=== PATIENT | female | born 1995 | race Caucasian/White ===

== ENCOUNTER 2019-03-17 17:14 | Emergency (ER) | payer OTHER, SELFPAY ==
[2019-03-17 17:32] VITALS: BP 111/73; PULSE 65; RESP 18; TEMP 36.9; O2SAT 98
--- NOTE | 2019-03-17 17:54 | ED.ABDPAIN ---
HPI - Abdominal Pain <BERTHA Rodriguez - Last Filed: 03/17/19 20:55> General Chief Complaint: Abdominal Pain Stated Complaint: pain left side stomach Time Seen by Provider: 03/17/19 17:27 Source: patient Mode of arrival: ambulatory Limitations: no limitations History of Present Illness HPI narrative: 23-year-old healthy female presents emergency department today complaining left-sided abdominal pain 2 hours ago. She states the pain is intense sharp stabbing 10/10 that is worse with movement and palpation. She reports associated nausea and vomiting in her ?mouth ?. Patient denies any trauma, chest pain, shortness of breath, recent illness, diarrhea, constipation, fevers, chills, vaginal discharge, vaginal bleeding, dysuria, flank pain, swelling in her legs, syncope, or dizziness. Patient denies any history of mono or or history of abdominal surgeries. Related Data Previous Rx's Medication Instructions Recorded ketorolac 10 mg PO TID #7 tab 03/17/19 Allergies Allergy/AdvReac Type Severity Reaction Status Date / Time No Known Drug Allergies Allergy Verified 03/17/19 17:24 Review of Systems <BERTHA Rodriguez - Last Filed: 03/17/19 20:55> Review of Systems Narrative: REVIEW OF SYSTEMS: GENERAL: Denies fever, chills, malaise, or wt. loss. HENT: No head trauma, sore throat, or dysphagia. EYES: No loss of vision, double vision, eye pain, or irritation. CARDIOVASCULAR: No chest pain, palpitations, or orthopnea. RESPIRATORY: No shortness of breath or cough. GASTROINTESTINAL: Complains of left upper quadrant abdominal pain, see HPI GENITOURINARY: No flank pain, urinary incontinence, hesitancy, frequency, or dysuria. No vaginal discharge or dyspareunia. Denies concerns for STIs. MUSCULOSKELETAL: No pain, weakness, or trauma. INTEGUMENTARY: No rash, lesions, or pruritus. NEURO: No numbness, tingling, memory loss, confusion, or headaches. PSYCH: No behavior or mood changes. PFSH <BERTHA Rodriguez - Last Filed: 03/17/19 20:55> Medical History No significant medical problems (Acute) Social History Smoking Status: Never smoker Social History Smoking Status: Never smoker Exam <BERTHA Rodriguez - Last Filed: 03/17/19 20:55> Initial Vital Signs Initial Vital Signs: Vital Signs Temperature 98.5 F 03/17/19 17:32 Pulse Rate 65 03/17/19 17:32 Respiratory Rate 18 03/17/19 17:32 Blood Pressure 111/73 03/17/19 17:32 Pulse Oximetry 98 03/17/19 17:32 PHYSICAL EXAMINATION: GENERAL: Well groomed, alert, and cooperative. Patient appears in pain during initial exam. Answers questions promptly and appropriately. Vital signs noted. HENT: Normocephalic, atraumatic. Hearing intact. Oral mucosa is pink and moist. EYES: Conjunctiva pink, sclera white, no periorbital swelling. CARDIOVASCULAR: S1 and S2 sounds normal. Regular rate and rhythm, no murmurs, clicks, or bruits. No pedal edema. RESPIRATORY: Normal respiratory rate, trachea midline, airway patent. No stridor, nasal flaring or accessory muscle use. Lungs are clear in all hall without wheeze, rhonchi, or crackles. GASTROINTESTINAL: Bowel sounds normoactive. Abdomen is soft, left upper quadrant tenderness with palpation, no rebound tenderness.. No organomegaly, no palpable masses. GENITALURINARY: No flank tenderness. MUSCULOSKELETAL: Normal gait and coordination. Equal tone and mass bilaterally. EXTREMITIES: CMS intact, no pedal edema. SKIN: Warm, dry, soft, appropriate color for ethnicity. No lesions, rashes, or wounds. NEURO: Alert and Oriented X 3. Good coordination. No ataxia, or sensory deficits, or cognitive issues. PSYCH: Appropriate affect and mood. <Robin Denny DO - Last Filed: 03/17/19 23:58> Initial Vital Signs Initial Vital Signs: Vital Signs Temperature 98.5 F 03/17/19 17:32 Pulse Rate 65 03/17/19 17:32 Respiratory Rate 18 03/17/19 17:32 Blood Pressure 111/73 03/17/19 17:32 Pulse Oximetry 98 03/17/19 17:32 Course <BERTHA Rodriguez - Last Filed: 03/17/19 20:55> Course Course Narrative: Patient reported she felt significantly better after administration of Toradol and Zofran. We discussed her negative test results and the importance of follow-up care. Orders Ordered: ED Orders 03/17/19 18:30 Complete Blood Count AUTO DIFF Stat Comprehensive Metabolic Panel Stat HCG Quantitative Stat Lipase Stat Monotest Stat 03/17/19 18:33 CT abdomen pelvis w con Stat Discontinued Medications Sodium Chloride (Normal Saline 0.9%) 1,000 mls @ 1,000 mls/hr IV BOLUS ONE Stop: 03/17/19 18:52 Last Infusion: 03/17/19 20:15 Dose: 1,000 mls/hr Documented by: Infusion: 03/17/19 19:30 Dose: 1,000 mls/hr Documented by: Infusion: 03/17/19 18:59 Dose: 0 mls/hr Documented by: Admin: 03/17/19 18:39 Dose: 1,000 mls/hr Documented by: MEISENGen Ketorolac Tromethamine (Toradol) 30 mg IV NOW ONE Stop: 03/17/19 18:34 Last Admin: 03/17/19 18:39 Dose: 30 mg Documented by: MEISENB Ondansetron HCl (Zofran) 4 mg IV NOW ONE Stop: 03/17/19 17:54 Last Admin: 03/17/19 18:39 Dose: 4 mg Documented by: WILBERSENGen Consultations Consultation #1: Patient staffed with Dr. Denny. Vital Signs Vital signs: Vital Signs - 8 hr 03/17/19 17:32 03/17/19 18:00 03/17/19 18:45 Temperature 98.5 F Pulse Rate 65 70 72 Respiratory Rate 18 18 18 Blood Pressure [Right Arm] 111/73 116/81 116/65 Pulse Oximetry 98 99 98 03/17/19 20:23 Temperature Pulse Rate 67 Respiratory Rate 16 Blood Pressure [Right Arm] 103/75 Pulse Oximetry 100 <Robin Denny DO - Last Filed: 03/17/19 23:58> Orders Ordered: ED Orders 03/17/19 18:30 Complete Blood Count AUTO DIFF Stat Comprehensive Metabolic Panel Stat HCG Quantitative Stat Lipase Stat Monotest Stat 03/17/19 18:33 CT abdomen pelvis w con Stat Discontinued Medications Sodium Chloride (Normal Saline 0.9%) 1,000 mls @ 1,000 mls/hr IV BOLUS ONE Stop: 03/17/19 18:52 Last Infusion: 03/17/19 20:15 Dose: 1,000 mls/hr Documented by: Infusion: 03/17/19 19:30 Dose: 1,000 mls/hr Documented by: Infusion: 03/17/19 18:59 Dose: 0 mls/hr Documented by: Admin: 03/17/19 18:39 Dose: 1,000 mls/hr Documented by: WILBERSENGen Ketorolac Tromethamine (Toradol) 30 mg IV NOW ONE Stop: 03/17/19 18:34 Last Admin: 03/17/19 18:39 Dose: 30 mg Documented by: ARLINE Ondansetron HCl (Zofran) 4 mg IV NOW ONE Stop: 03/17/19 17:54 Last Admin: 03/17/19 18:39 Dose: 4 mg Documented by: ARLINE Vital Signs Vital signs: Vital Signs - 8 hr 03/17/19 17:32 03/17/19 18:00 03/17/19 18:45 Temperature 98.5 F Pulse Rate 65 70 72 Respiratory Rate 18 18 18 Blood Pressure [Right Arm] 111/73 116/81 116/65 Pulse Oximetry 98 99 98 03/17/19 20:23 Temperature Pulse Rate 67 Respiratory Rate 16 Blood Pressure [Right Arm] 103/75 Pulse Oximetry 100 MDM - Abdominal Pain <BERTHA Rodriguez - Last Filed: 03/17/19 20:55> Medical Records Attestation: I reviewed the patient's medical records. Lab Data Attestation: I reviewed the patient's lab results. Result diagrams: 03/17/19 18:30 03/17/19 18:30 Labs: Lab Results 03/17/19 03/17/19 03/17/19 Range/Units 18:30 18:30 18:30 WBC 7.6 (4.5-11.0) X10^3/uL RBC 4.39 (4.0-5.2) X10^6/uL Hgb 13.2 (12.0-16.0) g/dL Hct 38.5 (36-46) % MCV 87.8 (80-100) fL MCH 30.1 (26-34) PG MCHC 34.3 (30-36) % RDW 13.5 (11.6-14.8) % Plt Count 253 (150-400) X10^3/uL Neut % (Auto) 58.0 (50-75) % Lymph % (Auto) 33.8 (25-40) % [place] % (Auto) 6.7 (3-14) % Eos % (Auto) 1.2 L (2-4) % Baso % (Auto) 0.3 (0-2) % Neut # (Auto) 4400 (8668-0122) /uL Lymph # (Auto) 2600 (8776-3476) /uL [place] # (Auto) 500 (0-900) /uL Eos # (Auto) 100 (0-450) /uL Baso # (Auto) 0 (0-100) /uL Sodium 142 (137-145) mmol/L Potassium 4.3 (3.4-5.1) mmol/L Chloride 106 (98-107) mmol/L Carbon Dioxide 26 (22-32) mmol/L BUN 11 (7-17) mg/dL Creatinine 0.60 (0.52-1.04) mg/dL Estimated GFR > 60.0 (>60) mL/min BUN/Creatinine Ratio 18.3 (6-22) Glucose 90 (70-100) mg/dL Calcium 10.0 (8.4-10.2) mg/dL Total Bilirubin 0.8 (0.2-1.3) mg/dL AST 39 H (14-36) IU/L ALT 50 (9-52) IU/L Alkaline Phosphatase 92 (38-126) U/L Total Protein 8.3 H (6.3-8.2) g/dL Albumin 4.8 (3.5-5.0) g/dL Globulin 3.5 (1.7-4.1) g/dL Albumin/Globulin Ratio 1.4 (1.0-2.8) Lipase 76 (23-300) U/L HCG, Quant < 2.39 mIU/mL Monoscreen Negative (Negative) Point of care testing: Point of Care Testing Test Results Negative Urine Dip Bedside Urine Glucose Negative Bedside Urine Bilirubin - Negative Bedside Urine Ketone - Negative Urine Specific [place] 1.010 Bedside Urine Occult Blood - Negative Bedside Urine pH 7 Bedside Urine Protein - Negative Bedside Urine Urobilinogen - Negative Bedside Urine Nitrite - Negative Bedside Urine Leukocytes - Negative Esterase Imaging Data CT scan - abdomen: Radiologist's impression: [address] [address] [address] Scan Report Signed Patient: Dana Díaz LMR#: [id number] : 1995Acct:[id number] Age/Sex: 23 / FDate of Service: 03/17/19 Loc: ED Accession Number: [id number] Procedure: CT abdomen pelvis w con Ordering Provider: Svitlana Olmos PROCEDURE: CT ABDOMEN PELVIS W CON INDICATIONS: Severe LUQ pain TECHNIQUE: After the administration of intravenous contrast, 5 mm thick sections acquired from the diaphragm to the symphysis. 5 mm coronal and sagittal reformats were acquired. For radiation dose reduction, the following was used: automated exposure control, adjustment of mA and/or kV according to patient size. COMPARISON: None. FINDINGS: Image quality: Excellent. ABDOMEN: Lung bases: Lung bases are clear. Heart size is normal. Solid organs: Liver is normal in size and enhancement. Gallbladder is contracted, but within normal limits. Biliary system is non dilated. Pancreas enhances normally. Spleen is normal in size and enhancement. No adrenal nodules. Kidneys demonstrate normal size and enhancement, without hydronephrosis. Peritoneum and bowel: Bowel loops demonstrate normal wall thickness and caliber. A few scattered diverticuli are noted in the sigmoid colon without evidence of diverticulitis. No free fluid or air. The appendix is visualized and is normal. Nodes and vessels: No retroperitoneal or mesenteric adenopathy by size criteria. Aorta and inferior vena cava are normal in size. Miscellaneous: No ventral hernias. PELVIS: Genitourinary: Bladder wall thickness is normal. Miscellaneous: No inguinal hernias or adenopathy. Bones: No suspicious bony lesions. No vertebral body compression fractures. IMPRESSION: 1. No acute disease process. 2. Colonic diverticulosis without evidence diverticulitis. 3. Appendix is normal 4. No free fluid or free air. 5. No dilated loops of bowel. Dictated by: Elyse Parish MD, PhD on 03/17/2019 at 19:28 Approved by: Elyse Parish MD, PhD on 03/17/2019 at 19:31 [facility] Narrative Medical decision making narrative: Differential includes splenic inflammation or etiology (less likely due to normal visualization of spleen, no history of trauma), renal calculi (less likely due to right upper quadrant pain without flank pain, CT visualized and normal kidneys without hydronephrosis), diverticulitis (less likely due to lack of findings on CT, ) urine white blood cell count, less likely ectopic as patient test negative for . Less likely ovarian cyst or PID as patient denies vaginal discharge, she denies lower abdominal pain or pelvic pain, pain is mostly in the right upper quadrant, she denies risk for STDs. Suspect patient is a good candidate to be discharged as she reports significant resolution of pain after administration of Toradol. However, strict return precautions were given if her pain changes or if she develops any new symptoms given that we cannot pinpoint the etiology of her symptoms and her pain was severe upon admission. <Robin Denny DO - Last Filed: 03/17/19 23:58> Lab Data Labs: Lab Results 03/17/19 03/17/19 03/17/19 Range/Units 18:30 18:30 18:30 WBC 7.6 (4.5-11.0) X10^3/uL RBC 4.39 (4.0-5.2) X10^6/uL Hgb 13.2 (12.0-16.0) g/dL Hct 38.5 (36-46) % MCV 87.8 (80-100) fL MCH 30.1 (26-34) PG MCHC 34.3 (30-36) % RDW 13.5 (11.6-14.8) % Plt Count 253 (150-400) X10^3/uL Neut % (Auto) 58.0 (50-75) % Lymph % (Auto) 33.8 (25-40) % [place] % (Auto) 6.7 (3-14) % Eos % (Auto) 1.2 L (2-4) % Baso % (Auto) 0.3 (0-2) % Neut # (Auto) 4400 (4381-5623) /uL Lymph # (Auto) 2600 (0404-8673) /uL [place] # (Auto) 500 (0-900) /uL Eos # (Auto) 100 (0-450) /uL Baso # (Auto) 0 (0-100) /uL Sodium 142 (137-145) mmol/L Potassium 4.3 (3.4-5.1) mmol/L Chloride 106 (98-107) mmol/L Carbon Dioxide 26 (22-32) mmol/L BUN 11 (7-17) mg/dL Creatinine 0.60 (0.52-1.04) mg/dL Estimated GFR > 60.0 (>60) mL/min BUN/Creatinine Ratio 18.3 (6-22) Glucose 90 (70-100) mg/dL Calcium 10.0 (8.4-10.2) mg/dL Total Bilirubin 0.8 (0.2-1.3) mg/dL AST 39 H (14-36) IU/L ALT 50 (9-52) IU/L Alkaline Phosphatase 92 (38-126) U/L Total Protein 8.3 H (6.3-8.2) g/dL Albumin 4.8 (3.5-5.0) g/dL Globulin 3.5 (1.7-4.1) g/dL Albumin/Globulin Ratio 1.4 (1.0-2.8) Lipase 76 (23-300) U/L HCG, Quant < 2.39 mIU/mL Monoscreen Negative (Negative) Point of care testing: Point of Care Testing Test Results Negative Urine Dip Bedside Urine Glucose Negative Bedside Urine Bilirubin - Negative Bedside Urine Ketone - Negative Urine Specific [place] 1.010 Bedside Urine Occult Blood - Negative Bedside Urine pH 7 Bedside Urine Protein - Negative Bedside Urine Urobilinogen - Negative Bedside Urine Nitrite - Negative Bedside Urine Leukocytes - Negative Esterase Discharge Plan Departure Patient Disposition: Home Clinical Impression: Abdominal pain Qualifiers: Abdominal location: left upper quadrant Qualified Code(s): R10.12 - Left upper quadrant pain Discharge Date/Time: 03/17/19 20:20 Instructions: DI for Abdominal Pain-Adult Activity Restrictions/Additional Instructions: Thank you for entrusting me with your care today. As discussed, your CT scan, blood work, and urinalysis were negative for any concerning findings. I prescribed you a medication to help with pain, do not take ibuprofen, Aleve, or Advil with this medication. If you need something in addition to Ketoralac you may take Tylenol. Follow up with your primary care provider in the next week for re-evaluation and further testing if needed. Return to the emergency department if you experience high fevers, chest pain, shortness of breath, severe abdominal pain, uncontrollable vomiting, or other concerns. Prescriptions: New ketorolac 10 mg tablet 10 mg PO TID Qty: 7 RF: 0 <Robin Denny DO - Last Filed: 03/17/19 23:58> Sign Out Provider Sign Out Attestation: I was available for consultation during this patient's emergency department encounter
[2019-03-17 18:00] VITALS: BP 116/81; PULSE 70; RESP 18; O2SAT 99
--- NOTE | 2019-03-17 18:33 | DI.CT.S_ITS ---
PROCEDURE: CT ABDOMEN PELVIS W CON INDICATIONS: Severe LUQ pain TECHNIQUE: After the administration of intravenous contrast, 5 mm thick sections acquired from the diaphragm to the symphysis. 5 mm coronal and sagittal reformats were acquired. For radiation dose reduction, the following was used: automated exposure control, adjustment of mA and/or kV according to patient size. COMPARISON: None. FINDINGS: Image quality: Excellent. ABDOMEN: Lung bases: Lung bases are clear. Heart size is normal. Solid organs: Liver is normal in size and enhancement. Gallbladder is contracted, but within normal limits. Biliary system is non dilated. Pancreas enhances normally. Spleen is normal in size and enhancement. No adrenal nodules. Kidneys demonstrate normal size and enhancement, without hydronephrosis. Peritoneum and bowel: Bowel loops demonstrate normal wall thickness and caliber. A few scattered diverticuli are noted in the sigmoid colon without evidence of diverticulitis. No free fluid or air. The appendix is visualized and is normal. Nodes and vessels: No retroperitoneal or mesenteric adenopathy by size criteria. Aorta and inferior vena cava are normal in size. Miscellaneous: No ventral hernias. PELVIS: Genitourinary: Bladder wall thickness is normal. Miscellaneous: No inguinal hernias or adenopathy. Bones: No suspicious bony lesions. No vertebral body compression fractures. IMPRESSION: 1. No acute disease process. 2. Colonic diverticulosis without evidence diverticulitis. 3. Appendix is normal 4. No free fluid or free air. 5. No dilated loops of bowel. Dictated by: Elyse Parish MD, PhD on 03/17/2019 at 19:28 Approved by: Elyse Parish MD, PhD on 03/17/2019 at 19:31
[2019-03-17 18:38] LABS: Add Manual Diff / Slide Review NO; Basophils Absolute Auto 0 /uL (0-100); Basophils Percent Auto 0.3 % (0-2); Eosinophils Absolute Auto 100 /uL (0-450); Eosinophils Percent Auto 1.2 % (2-4); Hematocrit 38.5 % (36-46); Hemoglobin 13.2 g/dL (12.0-16.0); Lymphocytes Absolute Auto 2600 /uL (1100-4500); Lymphocytes Percent Auto 33.8 % (25-40); Mean Corpuscular HGB Conc 34.3 % (30-36); Mean Corpuscular Hemoglobin 30.1 PG (26-34); Mean Corpuscular Volume 87.8 fL (80-100); Monocytes Absolute Auto 500 /uL (0-900); Monocytes Percent Auto 6.7 % (3-14); Neutrophils Absolute Auto 4400 /uL (1500-7000); Platelet Count 253 X10^3/uL (150-400); Red Blood Cell Count 4.39 X10^6/uL (4.0-5.2); Red Cell Distribution Width 13.5 % (11.6-14.8); White Blood Cell Count 7.6 X10^3/uL (4.5-11.0)
[2019-03-17] MEDS: ONDANSETRON 4 MG/2 ML INJ IV (18:39)
[2019-03-17] MEDS: KETOROLAC 60 MG/2 ML VIAL 30 MG IV (18:39)
[2019-03-17] MEDS: SODIUM CHLORIDE 0.9% 1,000 ML 1000 ML IV (18:39)
[2019-03-17 18:45] VITALS: BP 116/65; PULSE 72; RESP 18; O2SAT 98
[2019-03-17 18:50] LABS: Alanine Aminotransferase 50 IU/L (9-52); Albumin 4.8 g/dL (3.5-5.0); Albumin Globulin Ratio 1.4 (1.0-2.8); Alkaline Phosphatase 92 U/L (38-126); Aspartate Aminotransferase 39 IU/L (14-36); BUN Creatinine Ratio 18.3 (6-22); Bilirubin Total 0.8 mg/dL (0.2-1.3); Blood Urea Nitrogen 11 mg/dL (7-17); Carbon Dioxide 26 mmol/L (22-32); Chloride 106 mmol/L (98-107); Estimated Glomerular Filt Rate > 60.0 mL/min (>60); Globulin 3.5 g/dL (1.7-4.1); Glucose 90 mg/dL (70-100); HEMOLYSIS < 15 (0-50); Lipase 76 U/L (23-300); Potassium 4.3 mmol/L (3.4-5.1); Sodium 142 mmol/L (137-145); Total Protein 8.3 g/dL (6.3-8.2)
[2019-03-17 19:07] LABS: HCG Quantitative /Beta subunit < 2.39 mIU/mL
[2019-03-17 19:11] LABS: Monotest Negative (Negative)
[2019-03-17 20:23] VITALS: BP 103/75; PULSE 67; RESP 16; O2SAT 100
== END 2019-03-17 20:20 | disposition home or self-care (01) ==
PROVIDERS: Emergency Provider Nurse Practitioner
DX: R10.12 Left upper quadrant pain (principal)
CPT/HCPCS: 36591; 74177; 80053; 81003; 81025; 83690; 84702; 85025; 86318; 96361; 96374; 96375; 99284; 99285; J1885; J2405; Q9967

== ENCOUNTER 2020-05-21 10:07 | Emergency (ER) | payer OTHER, SELFPAY ==
[2020-05-21 10:17] VITALS: BP 128/73; PULSE 94; RESP 16; O2SAT 100; BMI 44.6
--- NOTE | 2020-05-21 10:53 | ED_ITS ---
HPI - Female Genitourinary General Chief complaint: Urogenital-Female Stated complaint: back pain,fever,burning pee Time Seen by Provider: 05/21/20 10:52 Source: patient Mode of arrival: Ambulatory Limitations: no limitations History of Present Illness HPI Narrative: This is a 24-year-old female who comes to the emergency department with complaint of fever up to. Patient states that she has had dysuria, frequency and a sensation of incomplete emptying for the past day or so. She has had some chills like feeling. She has been some nausea but no vomiting. She has had bilateral back pain, she denies any abdominal pain or suprapubic pain. No constipation she has had some looser stools. She has noted a new vaginal discharge she describes it as clear. She is sexually active but has not had any contacts that have been concerning. She denies any other medical issues. She has had tubal ligation. She denies any allergies to medications. She does vape tobacco. Related Data Previous Rx's Medication Instructions Recorded ketorolac 10 mg PO TID #7 tab 03/17/19 doxycycline hyclate 100 mg PO BID #28 cap 05/21/20 metronidazole [Flagyl] 500 mg PO BID #28 tab 05/21/20 ondansetron HCl [Zofran] 4 mg PO Q6H PRN #5 tab 05/21/20 Allergies Allergy/AdvReac Type Severity Reaction Status Date / Time No Known Drug Allergies Allergy Verified 03/17/19 17:24 Review of Systems Review of Systems ROS Unobtainable: All systems reviewed & are unremarkable except as noted in HPI and below Patient History Medical History (Updated 05/21/20 @ 11:40 by Zuleyma Acharya DO) No significant medical problems Substance Use Type: does not use Exam Narrative Exam Narrative: GENERAL: Alert and oriented x three, obese female in [id number] distress. HEENT: Head normocephalic, atraumatic, EOMI, pupils reactive, face symmetric, moist mucous membranes NECK: Supple, full range of motion CARDIOVASCULAR: Regular rate and rhythm without murmurs, rubs or gallops. RESPIRATORY: Breath sounds equal bilaterally, no wheezes rales or rhonchi. ABDOMEN: Soft, nontender. Normoactive bowel sounds all 4 quadrants. No guarding or rebound, rigidity, no mass Female: externa vaginal examl normal, no vaginal bleeding, positive for thick yellow whitish discharge, positive for cervical motion tenderness, otherwise normal speculum exam, no adnexal tenderness/mass. Bimanual exam is normal, no enlarged or tender uterus. Non-gravid. : Bilateral CVA tenderness EXTREMITIES: Normal range of motion, no clubbing or edema. Neurovascularly intact NEUROLOGICAL: Cranial nerves II through XII grossly intact. Moving all extremities SKIN: Warm, dry, no petechiae, no rashes or lesions. Initial Vital Signs Initial Vital Signs: Vital Signs Pulse Rate 94 H 05/21/20 10:17 Respiratory Rate 16 05/21/20 10:17 Blood Pressure 128/73 05/21/20 10:17 Pulse Oximetry 100 05/21/20 10:17 Course Orders Ordered: ED Orders 05/21/20 10:35 Chlamydia Gonorrhea PCR -URINE Stat Urine Culture Stat 05/21/20 11:39 Genital Culture Stat Wet Prep Tric BV Maddie Stat Discontinued Medications Ceftriaxone Sodium (Ceftriaxone 1,000 Mg Vial) 250 mg IM NOW ONE Stop: 05/21/20 11:34 Last Admin: 05/21/20 12:10 Dose: 250 mg Documented by: KIRSTEN Doxycycline Hyclate (Doxycycline Hyclate 100 Mg Tablet) 100 mg PO NOW ONE Stop: 05/21/20 11:35 Last Admin: 05/21/20 11:50 Dose: 100 mg Documented by: KIRSTEN Ketorolac Tromethamine (Ketorolac 60 Mg/2 Ml Vial) 30 mg IM NOW ONE Stop: 05/21/20 11:34 Last Admin: 05/21/20 11:49 Dose: 30 mg Documented by: KIRSTEN Vital Signs Vital signs: Vital Signs - 8 hr 05/21/20 10:17 05/21/20 11:56 05/21/20 12:33 Temperature 98.8 F Pulse Rate 94 H 75 Respiratory Rate 16 16 Blood Pressure 128/73 117/69 Pulse Oximetry 100 99 MDM - Female Genitourinary Lab Data Attestation: I reviewed the patient's lab results. Labs: Urine Dip Bedside Urine Glucose Negative Bedside Urine Bilirubin - Negative Bedside Urine Ketone - Negative Urine Specific [place] 1.015 Bedside Urine Occult Blood - Negative Bedside Urine pH 7.0 Bedside Urine Protein - Negative Bedside Urine Urobilinogen - Negative Bedside Urine Nitrite - Negative Bedside Urine Leukocytes - Negative Esterase MDM Narrative Medical decision making narrative: Patient's urinalysis is negative. She does have new vaginal discharge. Patient is quite tender on exam. Started on antibiotics and cultures were sent. Discharge Plan Departure Patient Disposition: Home Clinical Impression: Acute pelvic inflammatory disease (PID) Instructions: DI for Pelvic Inflammatory Disease (PID) Activity Restrictions/Additional Instructions: Follow up with your physician in the next week for recheck and to follow up on your culture results. Take antibiotics until they are completely gone. You may take ibuprofen to 800 mg every 8 hours and/or Tylenol up to a 1000 mg every 8 hours as needed for pain If you are feeling nauseated you may take Zofran 1 tablet every 6 hours as needed nausea. Did not engage in any sexual activity until you have finished all antibiotics. Return to the ER for fevers, worsening abdominal or back pain, persistent vomiting, lightheadedness or passing out, black or bloody stools, difficulty with urination or other new or concerning symptoms. Prescriptions: New doxycycline hyclate 100 mg capsule 100 mg PO BID Qty: 28 RF: 0 metronidazole [Flagyl] 500 mg tablet 500 mg PO BID Qty: 28 RF: 0 ondansetron HCl [Zofran] 4 mg tablet 4 mg PO Q6H PRN (Reason: nausea and vomiting) Qty: 5 RF: 0 No Action ketorolac 10 mg tablet 10 mg PO TID Qty: 7 RF: 0
[2020-05-21] MEDS: KETOROLAC 60 MG/2 ML VIAL 30 MG IM (11:49)
[2020-05-21] MEDS: DOXYCYCLINE HYCLATE 100 MG TABLET PO (11:50)
[2020-05-21 11:56] VITALS: TEMP 37.1
[2020-05-21] MEDS: cefTRIAXone 1,000 MG VIAL 250 MG IM (12:10)
[2020-05-21 12:33] VITALS: BP 117/69; PULSE 75; RESP 16; O2SAT 99
[2020-05-21 13:51] LABS: Urine N gonorrhoeae NOT DETECTED
[2020-05-21 13:53] LABS: Urine Chlamydia NOT DETECTED
== END 2020-05-21 12:36 | disposition home or self-care (01) ==
PROVIDERS: Emergency Provider Emergency Medicine
DX: N73.9 Female pelvic inflammatory disease, unspecified (principal); R30.0 Dysuria; R10.9 Unspecified abdominal pain; R50.9 Fever, unspecified; E66.9 Obesity, unspecified
CPT/HCPCS: 81003; 87070; 87086; 87205; 87210; 87491; 87591; 96372; 99281; 99283; J0696; J1885

== ENCOUNTER 2024-08-01 09:14 | Emergency (ER) | payer OTHER, SELFPAY ==
[2024-08-01 09:17] VITALS: BP 187/95; PULSE 86; RESP 18; TEMP 37.8; O2SAT 100; BMI 46.2
[2024-08-01 09:49] VITALS: BP 134/97; PULSE 79; O2SAT 99
[2024-08-01 09:58] LABS: Add Manual Diff / Slide Review NO; Basophils Absolute Auto 100 /uL (0-100); Basophils Percent Auto 0.8 % (0-2); Eosinophils Absolute Auto 100 /uL (0-450); Eosinophils Percent Auto 1.8 % (2-4); Hemoglobin 14.1 g/dL (12.0-16.0); Lymphocytes Absolute Auto 1900 /uL (1100-4500); Lymphocytes Percent Auto 28.8 % (25-40); Mean Corpuscular HGB Conc 34.4 % (30-36); Mean Corpuscular Hemoglobin 30.6 PG (26-34); Mean Corpuscular Volume 89.1 fL (80-100); Monocytes Absolute Auto 400 /uL (0-900); Monocytes Percent Auto 6.3 % (3-14); Neutrophils Absolute Auto 4000 /uL (1500-7000); Neutrophils Percent Auto 62.3 % (50-75); Platelet Count 250 X10^3/uL (150-400); White Blood Cell Count 6.4 X10^3/uL (4.5-11.0)
[2024-08-01 10:00] VITALS: BP 132/80; PULSE 75; O2SAT 99
--- NOTE | 2024-08-01 10:08 | ED.FEMALEGU ---
HPI - Female Genitourinary General Chief complaint: Urogenital-Female Stated complaint: Lower back pain, fever, burning when urinating Time Seen by Provider: 08/01/24 09:34 Source: patient Mode of arrival: Ambulatory History of Present Illness HPI Narrative: Patient is a healthy 28-year-old female presenting today with back pain. Reports that the last couple of days she has had painful frequent urination. She took some porg-rhl-ddosakw medication but presents today with low-grade temperature of a 100?. She was previously had pyelonephritis. She started having pain on the left side now it is on both sides. Not radiating around her abdomen or down her legs. Feels nauseous. Generally uncomfortable Related Data Previous Rx's Medication Instructions Recorded ketorolac 10 mg tablet 10 mg PO TID pain #7 tabs 03/17/19 doxycycline hyclate 100 mg capsule 100 mg PO BID #28 caps 05/21/20 metronidazole 500 mg tablet 500 mg PO BID #28 tabs 05/21/20 (Flagyl) ondansetron HCl 4 mg tablet 4 mg PO Q6H PRN nausea and 05/21/20 (Zofran) vomiting #5 tabs cephalexin 500 mg capsule 500 mg PO BID 7 days #14 caps 08/01/24 Allergies Allergy/AdvReac Type Severity Reaction Status Date / Time codeine Allergy Verified 08/01/24 09:17 Patient History Medical History (Updated 08/01/24 @ 12:40 by Margarita Mendes DO) No significant medical problems tobacco type: vaping Exam Initial Vital Signs Initial Vital Signs: Vital Signs Temperature 100.0 F H 08/01/24 09:17 Pulse Rate 86 08/01/24 09:17 Respiratory Rate 18 08/01/24 09:17 Blood Pressure 187/95 H 08/01/24 09:17 Pulse Oximetry 100 08/01/24 09:17 Oxygen Delivery Method Room Air 08/01/24 09:17 GENERAL: Alert 18-year-old female appears to not feel well and in no acute distress. HEENT: Head atraumatic,EOMI, pupils reactive, face symmetric, moist mucous membranes CARDIOVASCULAR: Regular rate and rhythm without murmurs, rubs or gallops. RESPIRATORY: Breath sounds equal bilaterally, no wheezes rales or rhonchi. ABDOMEN: Soft, nontender. Normoactive bowel sounds all 4 quadrants. No guarding or rebound. : Mild bilateral CVA tenderness EXTREMITIES: Normal range of motion, no clubbing or edema. Neurovascularly intact NEUROLOGICAL: Alert and oriented x4.Normal gait and speech. SKIN: Warm, dry, no laceration, no petechiae, no rashes or lesions. Course Orders Ordered: ED Orders 08/01/24 09:50 CBC Auto Diff [Complete Blood Count AUTO DIFF] Stat CMP [Comprehensive Metabolic Panel] Stat Lactate (Lactic Acid) Stat 08/01/24 10:28 CT abdomen pelvis w con Stat 08/01/24 11:00 Blood Culture Stat Discontinued Medications Ceftriaxone Sodium 1,000 mg/ (Sodium Chloride) 100 mls @ 200 mls/hr IV NOW ONE Stop: 08/01/24 10:33 Last Infusion: 08/01/24 11:46 Dose: Infused Documented By: Admin: 08/01/24 10:51 Dose: 200 mls/hr Documented By: Ketorolac Tromethamine (Ketorolac 30 Mg/Ml Vial) 15 mg IV NOW ONE Stop: 08/01/24 10:29 Last Admin: 08/01/24 10:51 Dose: 15 mg Documented By: Morphine Sulfate (Morphine 4 Mg/Ml Inj) 4 mg IV NOW ONE Stop: 08/01/24 12:32 Last Admin: 08/01/24 12:34 Dose: Not Given Documented By: Ondansetron HCl (Ondansetron 4 Mg/2 Ml Inj) 4 mg IV NOW PRN PRN Reason: Nausea And Vomiting Ondansetron HCl (Ondansetron 4 Mg Odt) 4 mg SL NOW PRN PRN Reason: Nausea And Vomiting Ondansetron HCl (Ondansetron 4 Mg/2 Ml Inj) 4 mg IV NOW ONE Stop: 08/01/24 12:32 Last Admin: 08/01/24 12:34 Dose: Not Given Documented By: Vital Signs Vital signs: Vital Signs - 8 hr 08/01/24 12:50 Temperature 98.4 F Pulse Rate 66 Respiratory Rate 16 Blood Pressure 135/78 Pulse Oximetry 98 Oxygen Delivery Method Room Air MDM - Female Genitourinary Lab Data 08/01/24 09:50 08/01/24 09:50 Labs: Lab Results 08/01/24 08/01/24 Range/Units 09:26 09:50 WBC 6.4 (4.5-11.0) X10^3/uL RBC 4.60 (4.0-5.2) X10^6/uL Hgb 14.1 (12.0-16.0) g/dL Hct 41.0 (36-46) % MCV 89.1 (80-100) fL MCH 30.6 (26-34) PG MCHC 34.4 (30-36) % RDW 13.0 (11.6-14.8) % Plt Count 250 (150-400) X10^3/uL Neut % (Auto) 62.3 (50-75) % Lymph % (Auto) 28.8 (25-40) % Sampson % (Auto) 6.3 (3-14) % Eos % (Auto) 1.8 L (2-4) % Baso % (Auto) 0.8 (0-2) % Neut # (Auto) 4000 (8805-8655) /uL Lymph # (Auto) 1900 (7433-6285) /uL Sampson # (Auto) 400 (0-900) /uL Eos # (Auto) 100 (0-450) /uL Baso # (Auto) 100 (0-100) /uL Sodium 139 (137-145) mmol/L Potassium 4.2 (3.4-5.1) mmol/L Chloride 108 H (98-107) mmol/L Carbon Dioxide 23 (22-32) mmol/L BUN 10 (7-17) mg/dL Creatinine 0.67 (0.52-1.04) mg/dL Estimated GFR > 60 (>60) mL/min BUN/Creatinine Ratio 14.9 (6-22) Glucose 99 (70-100) mg/dL Lactate 1.1 (0.7-2.1) mmol/L Calcium 9.5 (8.4-10.2) mg/dL Total Bilirubin 0.8 (0.2-1.3) mg/dL AST 38 H (14-36) IU/L ALT 32 (<35) IU/L Alkaline Phosphatase 88 (38-126) U/L Total Protein 8.7 H (6.3-8.2) g/dL Albumin 4.9 (3.5-5.0) g/dL Globulin 3.8 (1.7-4.1) g/dL Albumin/Globulin Ratio 1.3 (1.0-2.8) Urine Color Yellow Urine Appearance Sl cloudy Urine pH 5.5 (4.5-8.0) Ur Specific [place] 1.025 (1.000-1.035) Urine Protein Negative (Negative) Urine Glucose (UA) Negative (Negative) g/dL Urine Ketones Negative (NEGATIVE) Urine Occult Blood 2+ H (Negative) Urine Nitrate Negative (Negative) Urine Bilirubin Negative (NEGATIVE) Urine Urobilinogen 1.0 (0.2) E.U./dL Ur Leukocyte Esterase 2+ H (NEGATIVE) Urine RBC 10-30/hpf H (0-5/HPF) Urine WBC 10-30/hpf H (0-5/HPF) Ur Squamous Epith Cells 1-5 /hpf (0-5/HPF) Urine Bacteria Few (2-10) H (None) Ur Culture Indicated? Specimen cultured Vol Urine Centrifuged 10ml (spun) Point of Care Testing Test Results Negative Urine Dip Bedside Urine Glucose Negative Bedside Urine Bilirubin - Negative Bedside Urine Ketone - Negative Urine Specific [place] 1.025 Bedside Urine Occult Blood +++ Bedside Urine pH 6.0 Bedside Urine Protein - Negative Bedside Urine Urobilinogen - Negative Bedside Urine Nitrite - Negative Bedside Urine Leukocytes ++ [address] scan - abdomen/pelvis: Radiologist's Impression: PROCEDURE: CT ABDOMEN PELVIS W CON INDICATIONS: back pain uti TECHNIQUE: After the administration of intravenous contrast, axial sections acquired from the lung bases to the pubic symphysis. Coronal and sagittal reformats were performed. For radiation dose reduction, the following was used: automated exposure control, adjustment of mA and/or kV according to patient size. COMPARISON: [facility], CT, CT ABDOMEN PELVIS W CON, 03/17/2019, 18:53. FINDINGS: Image quality: Diagnostic Lower chest: Unremarkable lung bases Normal heart size Liver: Unremarkable Gallbladder and biliary system: Cholecystectomy clips, nondilated Pancreas: No ductal dilation Spleen: Prominent at 12 the 13 cm Adrenals: No discrete nodules Kidneys: No solid mass or hydronephrosis. Vessels and lymph nodes: The main portal vein is patent. No abdominal aortic aneurysm or pathologic lymph nodes by size criteria. Bowel and peritoneum: No evidence of small bowel obstruction. No pathologic ascites. No drainable abscess. Appendix is nondilated Body wall: Unremarkable Pelvis: Bladder is under distended and not well assessed. Uterus is unremarkable, IUD is in place in expected position. Bones: There are degenerative changes. Pseudoarthrosis of the right L5 transverse process with the sacrum. Focal disc space height loss is seen at L5-S1. Suspect small disc bulges at the lower lumbar spine. IMPRESSION: No hydronephrosis. The bladder is under distended, limiting CT evaluation. Mild lumbar degenerative changes. Of note, there is pseudoarthrosis of the right L5 transverse process with the sacrum, which can be associated with focal pain. Other findings above. Dictated by: Sreedhar Miles M.D. on 08/01/2024 at 12:23 MDM Narrative Medical decision making narrative: MDM CC: Back pain painful frequent urination Complicating co-morbidities: Obesity Medical records reviewed: Differential considered: Nephrolithiasis pyelonephritis UTI PID, ovarian torsion Exam documented above, pertinent findings include: Mild bilateral CVA tenderness abdomen overall soft some mild suprapubic pain Lab Test results independently reviewed as above. Pertinent findings: CBC does not show any leukocytosis or anemia WBC 6.4 Electrolytes within normal limits no NILSA creatinine 0.67 Lactate 1.1 Liver enzymes stable AST is 38 bilirubin 0.8 Urinalysis positive for bacteria and leukocytes Imaging studies independently reviewed: CT does not show any evidence of nephrolithiasis or hydronephrosis Treatments: toradol Re-evaluations: Patient is still having some mild discomfort offered stronger pain medicine but she has to drive home Discussion: Patient 28-year-old female presents today with painful frequent urination ongoing for couple of days now having bilateral flank pain. CT does not show any evidence of nephrolithiasis. Blood work is overall reassuring no evidence of sepsis. I suspect pyelonephritis. Can be treated as outpatient. She was offered something more for pain but does not want any narcotics feels comfortable going home at this time Discharge Plan Departure Patient Disposition: Home Clinical Impression: Pyelonephritis Instructions: DI for Kidney Infection Activity Restrictions/Additional Instructions: *You have been diagnosed with *What to do: Increase fluids as tolerated take medication directed *Continue to take medications as directed Motrin 600 mg every 6 hours for pltf-wy-wbgkcqku pain Tylenol 1000 mg every 6 hours for dshd-ke-bptumpjs pain Keflex 500 mg twice a day for 7 days *Follow up with your primary care provider in 2-3 days or call [phone] *Return to ER if you should have increasing back pain persistent vomiting no improvement [or] any new, worsening or concerning symptoms Prescriptions: New cephalexin 500 mg capsule 500 mg PO BID 7 Days Qty: 14 0RF No Action ketorolac 10 mg tablet 10 mg PO TID Qty: 7 0RF doxycycline hyclate 100 mg capsule 100 mg PO BID Qty: 28 0RF metronidazole [Flagyl] 500 mg tablet 500 mg PO BID Qty: 28 0RF ondansetron HCl [Zofran] 4 mg tablet 4 mg PO Q6H PRN (Reason: nausea and vomiting) Qty: 5 0RF Stand Alone Forms: Patient Portal/API/Survey
[2024-08-01 10:10] LABS: Appearance Urine UA SL CLOUDY; Bilirubin Urine UA NEGATIVE (NEGATIVE); Color Urine UA YELLOW; Glucose Urine UA NEGATIVE (Negative); Ketones Urine UA NEGATIVE (NEGATIVE); Leukocyte Esterase Urine UA 2+ (NEGATIVE); Nitrite Urine UA NEGATIVE (Negative); Occult Blood Urine UA 2+ (Negative); Protein Urine UA NEGATIVE (Negative); Specific Gravity Urine UA 1.025 (1.000-1.035)
[2024-08-01 10:12] LABS: pH Urine UA 5.5 (4.5-8.0)
[2024-08-01 10:13] LABS: Alanine Aminotransferase 32 IU/L (<35); Albumin 4.9 g/dL (3.5-5.0); Albumin Globulin Ratio 1.3 (1.0-2.8); Alkaline Phosphatase 88 U/L (38-126); Aspartate Aminotransferase 38 IU/L (14-36); BUN Creatinine Ratio 14.9 (6-22); Bilirubin Total 0.8 mg/dL (0.2-1.3); Blood Urea Nitrogen 10 mg/dL (7-17); Calcium 9.5 mg/dL (8.4-10.2); Carbon Dioxide 23 mmol/L (22-32); Chloride 108 mmol/L (98-107); Estimated Glomerular Filt Rate > 60 mL/min (>60); Globulin 3.8 g/dL (1.7-4.1); Glucose 99 mg/dL (70-100); HEMOLYSIS < 15 (0-50); Potassium 4.2 mmol/L (3.4-5.1); Sodium 139 mmol/L (137-145); Total Protein 8.7 g/dL (6.3-8.2)
[2024-08-01 10:14] LABS: Urine Volume 10mL (spun)
[2024-08-01 10:14] LABS: Lactate (Lactic Acid) 1.1 mmol/L (0.7-2.1)
[2024-08-01 10:15] LABS: Bacteria Urine Few (2-10); Culture Indicated Urine Specimen Cultured; RBC Urine 10-30/HPF (0-5/HPF); Squamous Epithelial Cell Urine 1-5 /HPF (0-5/HPF); WBC Urine 10-30/HPF (0-5/HPF)
[2024-08-01 10:19] VITALS: BP 119/61; PULSE 79; O2SAT 99
--- NOTE | 2024-08-01 10:28 | DI.CT.S_ITS ---
PROCEDURE: CT ABDOMEN PELVIS W CON INDICATIONS: back pain uti TECHNIQUE: After the administration of intravenous contrast, axial sections acquired from the lung bases to the pubic symphysis. Coronal and sagittal reformats were performed. For radiation dose reduction, the following was used: automated exposure control, adjustment of mA and/or kV according to patient size. COMPARISON: [facility], CT, CT ABDOMEN PELVIS W CON, 03/17/2019, 18:53. FINDINGS: Image quality: Diagnostic Lower chest: Unremarkable lung bases Normal heart size Liver: Unremarkable Gallbladder and biliary system: Cholecystectomy clips, nondilated Pancreas: No ductal dilation Spleen: Prominent at 12 the 13 cm Adrenals: No discrete nodules Kidneys: No solid mass or hydronephrosis. Vessels and lymph nodes: The main portal vein is patent. No abdominal aortic aneurysm or pathologic lymph nodes by size criteria. Bowel and peritoneum: No evidence of small bowel obstruction. No pathologic ascites. No drainable abscess. Appendix is nondilated Body wall: Unremarkable Pelvis: Bladder is under distended and not well assessed. Uterus is unremarkable, IUD is in place in expected position. Bones: There are degenerative changes. Pseudoarthrosis of the right L5 transverse process with the sacrum. Focal disc space height loss is seen at L5-S1. Suspect small disc bulges at the lower lumbar spine. IMPRESSION: No hydronephrosis. The bladder is under distended, limiting CT evaluation. Mild lumbar degenerative changes. Of note, there is pseudoarthrosis of the right L5 transverse process with the sacrum, which can be associated with focal pain. Other findings above. Dictated by: Sreedhar Miles M.D. on 08/01/2024 at 12:23 Approved by: Sreedhar Miles M.D. on 08/01/2024 at 12:26
[2024-08-01 10:30] VITALS: BP 119/69; PULSE 77; RESP 16; O2SAT 98
[2024-08-01] MEDS: cefTRIAXone 1,000 MG in SODIUM CHLORIDE 0.9% 100 ML 200 MG IV (10:51)
[2024-08-01] MEDS: KETOROLAC 30 MG/ML VIAL 15 MG IV (10:51)
--- NOTE | 2024-08-01 12:17 | PC.NURSE ---
Pt continues to remain painful. 12/13 to low back and bilateral flank pain. Dr Mendes notified.
[2024-08-01 12:50] VITALS: BP 135/78; PULSE 66; RESP 16; TEMP 36.9; O2SAT 98
== END 2024-08-01 12:52 | disposition home or self-care (01) ==
PROVIDERS: Emergency Provider Emergency Medicine
DX: N12 Tubulo-interstitial nephritis, not specified as acute or chronic (principal); R30.0 Dysuria; R11.0 Nausea; R50.9 Fever, unspecified; F17.290 Nicotine dependence, other tobacco product, uncomplicated; E66.9 Obesity, unspecified; Z68.42 Body mass index [BMI] 45.0-49.9, adult
CPT/HCPCS: 36415; 74177; 80053; 81001; 81003; 81025; 83605; 85025; 87040; 87086; 96365; 96375; 99283; 99284; J0696; J1885; Q9967

== ENCOUNTER → 2024-10-28 13:45 | Outpatient (CLI) | payer OTHER, SELFPAY ==
--- NOTE | 2024-10-28 13:47 | DI.MRI.S_ITS ---
PROCEDURE: MR KNEE RT WO CON INDICATIONS: CHRONIC RT KNEE PAIN TECHNIQUE: Noncontrast sagittal PD fast spin echo and T2 fast spin echo with fat saturation, sagittal 3-D FLASH with fat saturation; coronal T1 spin echo and PD fast spin echo with fat saturation, and axial PD fast spin echo with fat saturation through the knee. COMPARISON: None. FINDINGS: Image quality: Diagnostic Menisci: Medial: A minimal horizontal tear is seen in the periphery of the body. Lateral: No significant tear Cruciate ligaments: Intact Medial structures: MCL: Intact Pes anserine tendons: Intact Semimembranosus: Intact Lateral structures: LCL: Intact Biceps femoris: Intact IT band: Intact Popliteus tendon: Intact Anterior structures: Extensor mechanism: Intact Fat pads: Mild focal edema in the superolateral corner of Hoffa's fat pad. Mild prepatellar edema also seen Medial retinaculum: Intact. Trochlea: Normal TT TG distance Bone and joint: Bones: No acute fracture Cartilage: Moderate chondromalacia of the patella, with numerous full-thickness fissures and subchondral edema, especially at the median ridge. Mild chondral heterogeneity seen elsewhere Joint space: No significant effusion Patrick's cyst: None Soft tissues: No significant vascular or other soft tissue pathology. IMPRESSION: Moderate chondromalacia of the patella with numerous full-thickness fissures and subchondral edema, especially at the median ridge. Mild focal edema in the superolateral corner of Hoffa's fat pad. These findings can be seen with patellar maltracking. TT TG distance is within normal limits. No significant chondral defect seen elsewhere. Intact cruciate and collateral ligaments. Minimal horizontal defect of the periphery of the medial meniscus, probably degenerative. Dictated by: Sreedhar Miles M.D. on 10/29/2024 at 6:49 Approved by: Sreedhar Miles M.D. on 10/29/2024 at 6:53
== END ==
PROVIDERS: PCP Family Medicine; Referring Provider Family Medicine; Visit Provider Family Medicine
DX: M22.41 Chondromalacia patellae, right knee (principal); M25.561 Pain in right knee; M25.461 Effusion, right knee
CPT/HCPCS: 73721

== ENCOUNTER 2025-03-30 06:12 | Day surgery (SDC) | payer OTHER, SELFPAY ==
[2025-03-24 12:07] VITALS: BMI 39.4
[2025-03-30] VITALS (9 sets, daily range): BP systolic 112–128; BP diastolic 64–84; PULSE 54–77; RESP 12–18; TEMP 35.9–36.8; O2SAT 98–100; BMI 39.9
--- NOTE | 2025-03-30 | PATH_ITS ---
[facility] Accession Number: [id number] No. of containers..01 Tissue . 01 Material submitted: . uterus - UTERUS AND CERVIX . 01 Diagnosis: UTERUS AND CERVIX, HYSTERECTOMY (PRESERVED OVARIES AND FALLOPIAN TUBES): Uterine weight: 162 grams. Cervix: No significant pathologic abnormalities; negative for dysplasia or malignancy. Endometrium: Weakly proliferative endometrium with focal changes compatible with exogenous hormonal/progestin effect. Negative for atypia, hyperplasia, or malignancy. Myometrium: Focal adenomyosis. Negative for atypia or malignancy. [facility] 04/06/2025 1400 Local . 01 Electronically signed: . Lizbeth Staton MD, Pathologist NPI- [id number] . 01 Gross description: . Received in formalin with two patient identifiers and uterus and cervix and consists of a 9.5 x 6.4 x 4.5 cm, 162-gram uterus with an attached 3.2 x 2.5 x 1.0 cm cervix. The uterine serosa is cummings-pink, smooth, glistening and otherwise unremarkable. The attached cervix has a focally hemorrhagic white glistening ectocervix and a 1.1 cm slit-like patent os. The specimen is opened to show a cummings, trabeculated unremarkable endocervical canal which is free of exophytic lesions. The myometrium is red-cummings, slightly thickened and trabeculated, and measures up to 2.8 cm in thickness. No masses or nodules in the myometrium are identified. There is a 4.0 x 2.1 cm triangular endometrial lining averaging 0.2 cm in thickness. The endometrial lining is cummings-red, finely granular, and free of exophytic lesions. Further examining shows a 0.5 cm in greatest dimension slightly hemorrhagic and cystic invagination located at the anterior lower uterine segment . Further sectioning in this area shows a hemorrhagic and otherwise unremarkable cut surface. [employer] sections are submitted as follows: . A1: Posterior cervix. A2: Anterior cervix. A3: Full thickness endomyometrium, posterior. A4: Full thickness endomyometrium, anterior. A5: Slightly hemorrhagic umbilicated area located at the anterior lower uterine segment. ([id number]) /MRV 03/31/2025 2147 Local . 01 Pathologist provided ICD-10: N92.0 . 01 CPT . 660926 Specimen Comment: A courtesy copy of this report has been sent to [phone] Performed at: [address] [facility] [address], [place], [place] [id number] MD Maxime Adams MD Phone: [phone]
[2025-03-30] MEDS: FAMOTIDINE 20 MG/2 ML VIAL IV (06:58)
[2025-03-30] MEDS: SCOPOLAMINE 1 PATCH TOP (06:58)
[2025-03-30] MEDS: ACETAMINOPHEN IV 1,000 MG/100 ML VIAL 400 MG IV (06:58)
--- NOTE | 2025-03-30 07:45 | PM.PREOP ---
Pre-operative Note COVID-19 COVID-19 status: Not tested Interval Note History & Physical reviewed/Exam performed by Physician: Yes Changes to H&P: No
--- NOTE | 2025-03-30 08:28 | SUR.OPER ---
Lithotomy on padded OR bed. Ravena Pad Positioner under torso. Head on pillow, arms padded and tucked at sides. Legs secured in padded yellow fins stirrups. IV site and ports padded and protected. BP cuff hub padded.
[2025-03-30] MEDS: LACTATED RINGERS 1,000 ML 42 ML IV (09:20)
--- NOTE | 2025-03-30 11:36 | PM.GYNOP.1 ---
Operative Date/Time/Diagnoses Date of procedure: 03/30/25 Time of procedure: 08:15 Pre-op diagnosis: Menometrorrhagia Adenomyosis Severe dysmenorrhea Post-op diagnosis: same Procedure & Clinicians Procedure: Procedures Operation Date: 03/30/25 07:45 Actual Procedure Side Surgeon marcos Robotic Assisted Total Laparoscopic Hysterectomy Fabian Mendoza MD Indications: Dana is a 29-year-old 4 para 4, LMP 02/11-02/26/2025 who presents with a multiyear history of heavy and extremely long menses. Patient experienced menarche just before her 7th birthday and menses since the very beginning were extremely heavy and moderately painful. She has had 4 pregnancies with her 1st delivered by spontaneous vaginal and the following 3 deliveries by section. She had a bilateral salpingectomy performed at the time of her last in 2019. Patient was placed on OCs in her teens which regulated her cycles but were still extremely heavy. Once she began having her children however her menses became progressively heavier and long-lasting. Patient passes large clots and has incapacitating dysmenorrhea at least 2-3 days per cycle. Patient's describes the feeling that she experiences with her menses as though her pelvis is being crushed. Her pain has not times been so bad that she has required narcotics from her primary care provider in order to have any semblance of significant relief. She has bleeding and/or pelvic pain at least 8-12 days out of each month with overflows and accidents occurring frequently. Her last Pap was greater than 3 years and she has never had any endometrial sampling. She denies intermenstrual spotting or postcoital bleeding. Patient's most recent pelvic imaging includes a pelvic ultrasound performed 12/09/[address] [facility]. That study showed the uterus to be anteverted and normal in size measuring 9.7 x 5.1 x 5.7 cm. The myometrium is described as heterogenous. The endometrium measures 5 mm in combined thickness. The cervix and vagina are within normal limits. The right ovary measures 2.2 x 2.3 x 2 cm with a calculated ovarian volume of 5.1 cc. The left ovary measures 2.1 x 3 x 1.8 cm with a calculated ovarian volume of 5.9 cc. Appropriate blood flow to the ovaries is noted with Doppler interrogation. Less than 12 follicles can be seen in each ovary. Adjacent to the left ovary seen only on transabdominal view there is a mixed echogenicity focus with posterior acoustic enhancement measuring 2.5 x 1.7 cm. No cystic lesions greater than 3 cm are noted and there was no pathological free fluid in the abdomen or pelvis. Abdominal pelvic CT performed at the same time did not reveal any additional findings. Endometrial sampling was negative for hyperplasia, atypia, or neoplasia. We had an extended discussion about potential causes and options for treatment for her menometrorrhagia, pelvic pain, and severe dysmenorrhea. The patient has used oral contraceptives in the past and also a Mirena IUD, neither of which were particularly effective. We discussed the possibility of inserting another Mirena IUD but the patient does not feel it would be helpful and does not wish to proceed in that direction. We also talked about the possibility of endometrial ablation but no guarantee could be provided to the patient that it would definitively resolve her symptoms. Instead patient would like very much to proceed with total laparoscopic hysterectomy and removal of tubal remnants should they be present. Based on the patient's symptomatology and ultrasound imaging, I strongly suspect adenomyosis is involved with the abnormal bleeding, pain, and severe dysmenorrhea. It would also be possible that the patient could have additional pelvic endometriosis contributing to her symptoms and robotic assisted hysterectomy would be advisable in such a situation. Following our discussions, the patient is strongly desirous of to proceed with robotic assisted total laparoscopic hysterectomy with removal of tubal remnants should they be present, and excision of pelvic peritoneal endometriosis should it be identified. She presents today for her scheduled surgery. Surgeon: Fabian Mendoza Hoop Punch And Coiler Operator Helper: Jaja Cardona Anesthesia Type: General Operative Notes Findings: The uterus is 8 weeks in size, globular with a soft consistency suggestive adenomyosis. Proximal tubal remnants are present and appear normal. Both ovaries appeared to be normal. There is no evidence of pelvic peritoneal endometriosis in the posterior cul-de-sac. There is significant scarring in the anterior cul-de-sac due to the patient's prior sections. The abdomen and pelvis were otherwise normal to laparoscopic evaluation. Closure Type: primary Specimen(s): uterus Applied: catheter Estimated blood loss (mL): 100 Blood products transfused: none Procedure in detail: With the patient under satisfactory general anesthesia in the modified dorsal lithotomy position, the perineum, vagina, and abdomen were prepped and draped in the usual manner for total laparoscopic hysterectomy with robotic assist.? A pre-surgical safety time-out was then taken in accordance with [facility] OR protocols.? A bivalve speculum was then placed in the vagina and the cervix visualized.? The anterior lip of the cervix was then grasped with single-tooth tenaculum and the endocervical canal dilated to 6 mm with Hegar dilators.? A stitch was then placed in the anterior lip of the cervix using 1. PDS and the suture was threaded through the colpotomy cup of the VCare which was then introduced into the endometrial cavity without difficulty.? Once the VCare was placed, preparations for laparoscopy were initiated.? An 8 mm transverse incision was then made above the umbilicus after infiltration with 0.5% Marcaine with epinephrine.? A varies needle was then used to insufflate the abdominal cavity and once properly insufflated, an 8 mm trocar and sleeve were introduced through the incision into the abdominal cavity.? Correct placement of the sleeve in the abdominal cavity was confirmed with a 5 mm scope.? Two additional 8 mm trocars and sleeves were then placed laterally on the patient's right side using a similar technique, and 1 additional 8 mm trocar was then placed laterally on the patient's left side. ?The patient was then placed in 27 degree Trendelenburg position. ?The robot was brought in and positioned on the patient's left side. ?The robotic scope was then placed through the 8 mm #2 Port and aimed at the uterus as the focal point of surgery.? A vessel sealer, fenestrated bipolar grasper, and laparoscopic scissors were then placed in the 3 remaining ports.? The pelvis was carefully inspected with the findings as noted above.? Attention was then turned to the left adnexa with the distal tube grasped with the fenestrated bipolar grasper. ?The vessel sealer was used to coagulate and divide the fimbria ovarica all the way over to the left cornua.? The vessel sealer was then used to coagulate and divide 1st the utero-ovarian ligament on the left followed by the round ligament on the left.? The dissection was carried down to the bladder reflection.? The peritoneum at the level of the bladder reflection was then taken down with the vessel sealer across the midline and the bladder was easily advanced.? The ascending uterine vessels were then taken on the left side with the fenestrated bipolar grasper and divided with the scissors.? There was no significant bleeding noted.? Attention was then turned to the right adnexa with the distal tube grasped with the fenestrated bipolar grasper.? The fimbria ovarica was then coagulated and divided with the vessel sealer and then dissection was carried across the mesosalpinx to the cornua on the right.? The utero-ovarian ligament was then coagulated and divided and the dissection carried down across the round ligament on the right down to the level of the vessels at the bladder reflection.? The bladder flap was then completed using the vessel sealer and the bladder further advanced beyond the level of the colpotomy cup.? The fenestrated bipolar grasping forceps were used to coagulate the ascending uterine vessels on the right side and they were transected then with the monopolar scissors.? Anterior colpotomy was then performed along the line of the colpotomy cup using the monopolar cutting current in the scissors in a similar posterior incision was made along the line of the colpotomy cup.? Once the ascending uterine vessels were isolated, each side was coagulated and divided with the fenestrated bipolar forceps and the monopolar scissors.? Once the uterus was completely freed, it was removed through the vaginal canal along with the VCare.? A moistened towel was then introduced into the vaginal canal as an obturator and the vaginal cuff was closed in 2 layers using 0 strata fix suture.? The pelvis was thoroughly irrigated and inspected for any other abnormality or bleeding.? There were no abnormalities or bleeding noted and the pneumoperitoneum was vented.? The laparoscopy port sleeves were then removed and each of the incisions were closed with 4-0 Monocryl using inverted interrupted stitches.? The port incisions were then covered with an appropriate dressing and the patient was awakened from anesthesia.? She was then transferred to the PACU for a period of observation and recovery after having tolerated the procedure well. Complications: none Post-operative Condition: stable Disposition: PACU Plan for aftercare: Routine PACU care with transfer to acute care for a period of recovery prior to discharge.
[2025-03-30] MEDS: KETOROLAC 30 MG/ML VIAL 15 MG IV (11:43)
[2025-03-30] MEDS: ONDANSETRON 4 MG/2 ML INJ IV ×2 (11:43→12:44)
[2025-03-30] MEDS: KETOROLAC 30 MG/ML VIAL IV (12:43)
[2025-03-30] MEDS: ACETAMINOPHEN 325 MG TABLET 650 MG PO (12:44)
[2025-03-30] MEDS: LACTATED RINGERS 1,000 ML 100 ML IV (12:44)
[2025-03-30] MEDS: HYDROmorphone 2 MG/ML SYRINGE IV (14:19)
--- NOTE | 2025-03-30 17:52 | PM.DS.IH.1 ---
History of Present Illness History of Present Illness Date Patient Seen: 03/30/25 Time Patient Seen: 17:52 [place] [facility] [place] Dana is a 29-year-old 4 para 4, LMP 02/11-02/26/2025 who presents with a multiyear history of heavy and extremely long menses. Patient experienced menarche just before her 7th birthday and menses since the very beginning were extremely heavy and moderately painful. She has had 4 pregnancies with her 1st delivered by spontaneous vaginal and the following 3 deliveries by section. She had a bilateral salpingectomy performed at the time of her last in 2019. Patient was placed on OCs in her teens which regulated her cycles but were still extremely heavy. Once she began having her children however her menses became progressively heavier and long-lasting. Patient passes large clots and has incapacitating dysmenorrhea at least 2-3 days per cycle. Patient's describes the feeling that she experiences with her menses as though her pelvis is being crushed. Her pain has not times been so bad that she has required narcotics from her primary care provider in order to have any semblance of significant relief. She has bleeding and/or pelvic pain at least 8-12 days out of each month with overflows and accidents occurring frequently. Her last Pap was greater than 3 years and she has never had any endometrial sampling. She denies intermenstrual spotting or postcoital bleeding. Patient's most recent pelvic imaging includes a pelvic ultrasound performed 12/09/[address] [facility]. That study showed the uterus to be anteverted and normal in size measuring 9.7 x 5.1 x 5.7 cm. The myometrium is described as heterogenous. The endometrium measures 5 mm in combined thickness. The cervix and vagina are within normal limits. The right ovary measures 2.2 x 2.3 x 2 cm with a calculated ovarian volume of 5.1 cc. The left ovary measures 2.1 x 3 x 1.8 cm with a calculated ovarian volume of 5.9 cc. Appropriate blood flow to the ovaries is noted with Doppler interrogation. Less than 12 follicles can be seen in each ovary. Adjacent to the left ovary seen only on transabdominal view there is a mixed echogenicity focus with posterior acoustic enhancement measuring 2.5 x 1.7 cm. No cystic lesions greater than 3 cm are noted and there was no pathological free fluid in the abdomen or pelvis. Abdominal pelvic CT performed at the same time did not reveal any additional findings. Endometrial sampling was negative for hyperplasia, atypia, or neoplasia. We had an extended discussion about potential causes and options for treatment for her menometrorrhagia, pelvic pain, and severe dysmenorrhea. The patient has used oral contraceptives in the past and also a Mirena IUD, neither of which were particularly effective. We discussed the possibility of inserting another Mirena IUD but the patient does not feel it would be helpful and does not wish to proceed in that direction. We also talked about the possibility of endometrial ablation but no guarantee could be provided to the patient that it would definitively resolve her symptoms. Instead patient would like very much to proceed with total laparoscopic hysterectomy and removal of tubal remnants should they be present. Based on the patient's symptomatology and ultrasound imaging, I strongly suspect adenomyosis is involved with the abnormal bleeding, pain, and severe dysmenorrhea. It would also be possible that the patient could have additional pelvic endometriosis contributing to her symptoms and robotic assisted hysterectomy would be advisable in such a situation. Following our discussions, the patient is strongly desirous of to proceed with robotic assisted total laparoscopic hysterectomy with removal of tubal remnants should they be present, and excision of pelvic peritoneal endometriosis should it be identified. She presents today for her scheduled surgery. Discharge Providers Provider Date of admission: 03/30/2025 Discharge Date: 03/30/25 Primary care physician: Ayan Bradshaw DO Discharge provider: Fabian Mendoza MD Summary Hospital Course Discharge Diagnosis: Menometrorrhagia Severe dysmenorrhea Adenomyosis s/p Robotic total laparoscopic hysterectomy Hospital Course: Dana was admitted on the morning of 03/30/2025 and underwent an uneventful robotically assisted total laparoscopic hysterectomy. Full details of the procedure well summarized on my operative note of that date. Following surgery the patient has done exceptionally well with prompt return of bowel and bladder function, she is ambulating independently, tolerating a regular diet, and her pain is well-controlled with oral pain medications. She will be discharged at this time to home in an afebrile normotensive condition after counseling regarding precautionary symptoms, limitations of activity, medications, and plans for follow-up which will be in 2 weeks. Medications at discharge will include resumption of all preadmission medications in the patient will use [id number] pain medications for pain relief. Status at Discharge Cognitive/behavioral status at discharge: oriented Functional status at discharge: independent ambulation Overall status at discharge: patient is progressing back to baseline Time Spent with Patient Time spent: Less than 30 minutes Exam Vital Signs (past 8 hours): - 03/30/25 11:15 03/30/25 11:25 03/30/25 11:40 Temperature 98.2 F 98.2 F 97.2 F L Pulse Rate 65 65 59 L Respiratory Rate 12 12 16 Blood Pressure 116/69 115/64 112/65 Pulse Oximetry 100 99 98 Oxygen Delivery Method Room Air Room Air Room Air 03/30/25 11:53 03/30/25 11:59 03/30/25 12:50 Temperature 98.2 F 98.2 F 97.7 F Pulse Rate 56 L 54 L 58 L Respiratory Rate 16 16 18 Blood Pressure 114/73 122/74 125/83 Pulse Oximetry 98 98 98 Oxygen Delivery Method Room Air Room Air 03/30/25 13:15 03/30/25 14:23 Temperature 97.6 F 96.6 F L Pulse Rate 58 L 69 Respiratory Rate 18 18 Blood Pressure 128/84 123/84 Pulse Oximetry 98 100 Oxygen Delivery Method Oxygen Delivery Method Room Air Const General: cooperative and comfortable Nutritional Appearance: average body habitus Orientation: alert and oriented x3 HENMT Head: normal to inspection, atraumatic and abrasion Ears: hearing grossly normal bilaterally Face and sinus: face symmetric Eyes General: appearance normal, both eyes and all related structures Conjunctivae: conjunctivae normal Sclera: sclerae normal EOM: EOM intact bilaterally Neck Neck: normal visual inspection Resp Effort & Inspection: normal respiratory effort and able to speak in complete sentences Auscultation: clear to auscultation bilaterally Cardio Rate: regular rate Rhythm: regular rhythm Heart Sounds: S1 normal, S2 normal and no murmurs GI Inspection: normal to inspection and incision (Surgical dressings clean and dry) Palpation: soft, no hepatosplenomegaly and tender (Mild, diffuse postsurgical tenderness) External Female Exam: other (No significant bleeding noted) Extrem General: no calf tenderness Psych Appearance: grossly normal Mental Status: mental status grossly normal Speech and Movement: speech and movement normal Mood: congruent mood Affect: normal affect Attitude: cooperative Thought Process: normal Thought Content: normal Judgment: judgment good [facility] Medical History (Updated 05/23/25 @ 13:11 by Fabian Mendoza MD) Pyelonephritis No significant medical problems Surgical History (Updated 03/24/25 @ 12:13 by Tessa Cardenas RN) Hx of tubal ligation Social History household members: spouse and children Smoking Status: Current every day smoker (vape) alcohol intake: never Discharge Assessment & Plan Assessment and Plan Assessment: Menometrorrhagia Severe dysmenorrhea Adenomyosis s/p Robotic total laparoscopic hysterectomy Plan of Treatment: Routine post-op care. Discharge Plan Discharge Plan Patient Disposition: Home Provider Discharge Comment: Please review the written instructions you received when you were discharged from the hospital. Your follow-up appointment as scheduled for 2 weeks after surgery and I look forward to seeing you then. If however in the meanwhile you have any issues, concerns, or questions, please contact me either through the office phone at [phone], or via the patient portal. Discharge orders & Medications Discharge Orders: Discharge (Order); Ordered 03/30/25 Ordered By: Fabian Mendoza Prescriptions: Continued phentermine 15 mg capsule 15 mg PO DAILY Rx Instructions: must administer 2 hours after breakfast Contrave 8-90 mg tablet extended release 2 tab PO BID Discontinued norgestimate-ethinyl estradiol 0.25-0.035 mg tablet 1 tab PO DAILY No Action bisacodyl 10 mg suppository 10 mg WI DAILY PRN (Reason: constipation) Qty: 12 0RF magnesium citrate Solution 300 ml PO DAILY PRN (Reason: constipation) Qty: 296 0RF polyethylene glycol 3350 [Miralax] 17 gram/dose powder 17 g PO BID Qty: 510 0RF senna 8.6 mg capsule 8.6 mg PO BID PRN (Reason: constipation) Qty: 30 0RF Follow up/Referrals: Ayan Bradshaw DO [Primary Care Provider, Family Practice] Fabian Mendoza MD [Physician, [employer]ER] Diet/Activity/Treatments Diet: Diet as Tolerated Activity: As tolerated Other treatments: [id number] Tylenol and/or ibuprofen may be used for additional pain relief. Jvgg-ggm-rojdloz stool softeners and/or MiraLax may be used as needed for constipation. Skin/Wound/Dressing Care Report to your healthcare provider any signs of infection, such as:: chills, fever, increased pain, unusual drainage and unusual redness Dressing: Dressings should be removed on the morning of 04/01/2025 Visit Report/Discharge Packet Instructions: DI for Hysterectomy, DI for Laparoscopy Stand Alone Forms: Patient Portal/API, Surgery Discharge Print Language: Frisian Discharge Data Primary Care Provider: Ayan Bradshaw Attending Provider: Fabian Mendoza VTE Deep Vein Thrombosis/Pulmonary Embolism Present on Admission: No IH PROFEE Charge Codes Discharge inpatient/observation: 85231
--- NOTE | 2025-03-30 18:09 | PC.NURSE ---
1800 - discharge order reviewed. Discharge instructions given and understood. PIV and potter catheter removed. Pt discharged with pt's family via private vehicle, escorted by BETTY Arceo using a wheelchair.
== END 2025-03-30 18:11 | disposition home or self-care (01) ==
LOC: OR 06:13 → AC 11:46
PROVIDERS: PCP Family Medicine; Referring Provider Obstetrics & Gynecology; Visit Provider Obstetrics & Gynecology
PROC: 0UT94ZZ Resection of Uterus, Percutaneous Endoscopic Approach (ICD-10-PCS; CPT 58570; principal; 2025-03-30 07:45)
DX: N92.0 Excessive and frequent menstruation with regular cycle (principal); N94.6 Dysmenorrhea, unspecified; F17.210 Nicotine dependence, cigarettes, uncomplicated; N80.03 Adenomyosis of the uterus
CPT/HCPCS: 58570; S2900; A9270; J0131; J0689; J1100; J1171; J1885; J2250; J2405; J2704; J3010; J3490

== ENCOUNTER 2025-04-06 11:48 | Emergency (ER) | payer OTHER, SELFPAY ==
[2025-03-30 11:53] VITALS: BMI 39.9
[2025-04-06 11:54] VITALS: BP 169/93; PULSE 85; RESP 16; TEMP 36.8; O2SAT 100; BMI 39.9
--- NOTE | 2025-04-06 12:04 | ED.ABDPAIN ---
HPI - Abdominal Pain General Chief Complaint: Abdominal Pain Stated Complaint: had surgery wk ago hasnt had bowel movement Time Seen by Provider: 04/06/25 12:01 History of Present Illness HPI narrative: This is a 29 y/o F presenting to the ED due to constipation for the last 7 days. Patient was laparoscopic hysterectomy 7 days ago. States that she was had few ?rabbit size? stools as well as been passing flatus. Does report for episodes of vomiting yesterday. Describes a dull aching pain. Denies any fevers chest pain, shortness of breath. Has been on opiates. Has tried [id number] stool softeners without significant relief. Related Data Home Medications ?Medication ?Instructions ?Recorded ?Confirmed gabapentin 300 mg capsule 300 mg PO BID 03/07/25 03/30/25 naltrexone 8 mg-bupropion 90 mg 2 tab PO BID 03/07/25 03/30/25 tablet,extended release (Contrave) phentermine 15 mg capsule 15 mg PO DAILY 03/07/25 03/29/25 Previous Rx's ?Medication ?Instructions ?Recorded hydromorphone 2 mg tablet 2 mg PO Q3H PRN Pain, Severe 03/30/25 (7-10) #20 tabs bisacodyl 10 mg rectal suppository 10 mg KS DAILY PRN constipation 04/06/25 #12 ea magnesium citrate 300 ml PO DAILY PRN constipation 04/06/25 #296 mL polyethylene glycol 3350 17 17 g PO BID #510 grams 04/06/25 gram/dose oral powder (Miralax) sennosides 8.6 mg capsule (senna) 8.6 mg PO BID PRN constipation #30 04/06/25 caps Allergies Allergy/AdvReac Type Severity Reaction Status Date / Time codeine Allergy Verified 03/21/25 13:31 Review of Systems Review of Systems Narrative: GENERAL: Denies chills, fatigue, malaise, fever, sweats. HEENT: Denies sinus pain, ear pain, sore throat, difficulty swallowing, dizziness. RESPIRATORY: Denies dyspnea, cough, wheezing, hemoptysis, sputum. CARDIOVASCULAR: Denies chest pain, palpitations, orthopnea, edema, GASTROINTESTINAL: Reports constipation, vomiting Denies nausea, , abdominal pain, diarrhea, , melena. : Denies dysuria, frequency, incontinence, hematuria, urinary retention. MUSCULOSKELETAL: denies weakness, joint pain, or bony pain SKIN: Denies rash, skin lesions, or other NEUROLOGIC: Denies weakness, headache, numbness, change in speech, confusion, seizures, incoordination. PSYCHIATRIC: No concerning psychosocial issues. 12 point review of systems is negative except for those stated above Patient History Medical History (Updated 04/06/25 @ 15:06 by Jose David Chavez PA-C) Pyelonephritis No significant medical problems Surgical History (Updated 03/24/25 @ 12:13 by Tessa Cardenas RN) Hx of tubal ligation Social History household members: spouse and children alcohol intake: never tobacco type: vaping Exam Narrative Exam Narrative: GENERAL: Well-developed patient, in mild distress. HEAD: Atraumatic. Normocephalic. EYES: Pupils equal round and reactive. Extraocular motions intact. No scleral icterus. No injection or drainage. ENT: Nose without bleeding, purulent drainage. Throat without erythema, tonsillar hypertrophy or exudate. Airway patent. NECK: Trachea midline. Non tender EXTREMITIES: No edema or joint tenderness. NEURO: AOx3. SKIN: No rash or erythema of visible areas Abdomen: Mild generalized tenderness to palpation Initial Vital Signs Initial Vital Signs: Vital Signs Temperature 98.3 F 04/06/25 11:54 Pulse Rate 85 04/06/25 11:54 Respiratory Rate 16 04/06/25 11:54 Blood Pressure 169/93 H 04/06/25 11:54 Pulse Oximetry 100 04/06/25 11:54 Oxygen Delivery Method Room Air 04/06/25 11:54 Course Orders Ordered: Discontinued Medications Sodium Chloride (Normal Saline 0.9%) 1,000 mls @ 1,000 mls/hr IV BOLUS ONE Stop: 04/06/25 14:08 Last Infusion: 04/06/25 14:16 Dose: Infused Documented By: Admin: 04/06/25 13:13 Dose: 1,000 mls/hr Documented By: DALE Mineral Oil (Mineral Oil 1 Each Enema) 1 each KS NOW ONE Stop: 04/06/25 12:11 Last Admin: 04/06/25 12:26 Dose: 1 each Documented By: DALE Vital Signs Vital signs: Vital Signs - 8 hr 04/06/25 11:54 04/06/25 13:26 Temperature 98.3 F Pulse Rate 85 72 Respiratory Rate 16 16 Blood Pressure 169/93 H 146/82 H Pulse Oximetry 100 98 Oxygen Delivery Method Room Air Room Air MDM - Abdominal Pain Lab Data 04/06/25 13:07 04/06/25 13:07 Labs: Lab Results 04/06/25 Range/Units 13:07 WBC 7.0 (4.5-11.0) X10^3/uL RBC 4.47 (4.0-5.2) X10^6/uL Hgb 13.5 (12.0-16.0) g/dL Hct 39.9 (36-46) % MCV 89.4 (80-100) fL MCH 30.2 (26-34) PG MCHC 33.8 (30-36) % RDW 13.7 (11.6-14.8) % Plt Count 253 (150-400) X10^3/uL Neut % (Auto) 65.7 (50-75) % Lymph % (Auto) 23.2 L (25-40) % [place] % (Auto) 6.6 (3-14) % Eos % (Auto) 3.1 (2-4) % Baso % (Auto) 1.4 (0-2) % Neut # (Auto) 4600 (7245-4822) /uL Lymph # (Auto) 1600 (7062-2517) /uL [place] # (Auto) 500 (0-900) /uL Eos # (Auto) 200 (0-450) /uL Baso # (Auto) 100 (0-100) /uL Sodium 140 (137-145) mmol/L Potassium 4.3 (3.4-5.1) mmol/L Chloride 105 (98-107) mmol/L Carbon Dioxide 26 (22-32) mmol/L BUN 11 (7-17) mg/dL Creatinine 0.64 (0.52-1.04) mg/dL Estimated GFR > 60 (>60) mL/min BUN/Creatinine Ratio 17.2 (6-22) Glucose 103 H (70-99) mg/dL Calcium 9.5 (8.4-10.2) mg/dL Total Bilirubin 0.6 (0.2-1.3) mg/dL AST 76 H (14-36) IU/L ALT 98 H (<35) IU/L Alkaline Phosphatase 91 (38-126) U/L Total Protein 8.1 (6.3-8.2) g/dL Albumin 4.6 (3.5-5.0) g/dL Globulin 3.5 (1.7-4.1) g/dL Albumin/Globulin Ratio 1.3 (1.0-2.8) Point of care testing: Urine Dip Bedside Urine Glucose Negative Bedside Urine Bilirubin - Negative Bedside Urine Ketone - Negative Urine Specific [place] 1.020 Bedside Urine Occult Blood - Negative Bedside Urine pH 6.0 Bedside Urine Protein - Negative Bedside Urine Urobilinogen - Negative Bedside Urine Nitrite - Negative Bedside Urine Leukocytes - Negative Esterase Imaging Data CT scan - abdomen/pelvis: Radiologist's Impression: [address] [address] [address] Scan Report Signed Patient: Dana Díaz MR#: [id number] : 1995 Acct:[id number] Age/Sex: 29 / F Date of Service: 04/06/25 Loc: ED Accession Number: [id number] Procedure: CT abdomen pelvis w con Ordering Provider: Jose David Chavez PA-C PROCEDURE: CT ABDOMEN PELVIS W CON INDICATIONS: r/o SBO, Constipation + vomiting s/p lap hysterectomy TECHNIQUE: After the administration of intravenous contrast, axial sections acquired from the lung bases to the pubic symphysis. Coronal and sagittal reformats were performed. For radiation dose reduction, the following was used: automated exposure control, adjustment of mA and/or kV according to patient size. COMPARISON: [facility], CT, CT ABDOMEN PELVIS W CON, 08/01/2024, 11:57. FINDINGS: Image quality: Diagnostic. Lower Chest: No significant findings. ABDOMEN: Liver: No solid mass. Gallbladder: Removed. Biliary ducts: No biliary dilation. Pancreas: No ductal dilation. Spleen: Size is within normal limits. Adrenal Glands: No adrenal nodules. Kidneys and Ureters: No hydronephrosis. No solid mass. No complex renal cystic lesion which requires follow up. Stomach and Bowel: Normal colonic caliber, without significant wall thickening. Peritoneum: Scattered areas of free intraperitoneal air. No free fluid. Ventral Wall: No significant ventral hernia. Abdominal Nodes: No retroperitoneal or mesenteric adenopathy by size criteria. Vessels: Aorta and inferior vena cava are normal in size. PELVIS: Pelvic Organs: Uterus is not visualized. Bladder: No bladder wall thickening, accounting for underdistention. Pelvic Nodes: No enlarged lymph nodes. Miscellaneous: No inguinal hernias are seen. Bones: No aggressive osseous abnormality. Right L5 transverse process pseudoarthrosis with the sacrum IMPRESSION: Nonvisualization of the uterus consistent with history of hysterectomy. Several scattered foci of free air within the abdomen and pelvis consistent with recent surgery. No abscess or free fluid. Dictated by: Orquidea Najera M.D. on 04/06/2025 at 14:33 Approved by: Orquidea Najera M.D. on 04/06/2025 at 14:40 MDM Narrative Medical decision making narrative: ED course: 29 year female presenting to the emergency department due to constipation for the last 7 days after having a laparoscopic hysterectomy with OBGYN. She was reporting nausea and vomiting and CT ordered to rule out small-bowel obstruction. Lab work showed no significant concerning findings although did show some transaminitis which I recommended she follow up with the PCP about. Enema was attempted without any significant relief. CT showed no evidence of small-bowel obstruction but significant amount of stool was seen. Offered disimpaction but patient declined. We will attempt oral laxatives as well as suppository. CC: constipation Complicating co-morbidities: None Data collected from: Previous notes Medical records reviewed: Was seen by OBGYN for robotic assisted total laparoscopic hysterectomy [address] Mendoza. Differential considered, but not limited to: Small-bowel obstruction, constipation Exam documented above, pertinent findings include: Generalized tenderness to palpation Lab Test results independently reviewed as above. Pertinent findings: As noted above Imaging studies independently reviewed: CT showed no evidence of small-bowel obstruction Scores Used: None MIPS Elements: None Consultations: None Treatments: Enema attempted Re-evaluations: No bowel movement after enema Discussion: Discussed plan with the patient was comfortable with the plan Diagnosis: Constipation Disposition: see below, along with detailed discharge instructions that have been reviewed with patient as well as indications for ED re-evaluation and additional outpatient follow up Discharge Plan Departure Patient Disposition: Home Clinical Impression: Constipation Instructions: DI for Constipation Activity Restrictions/Additional Instructions: Thank you for coming to the [facility] Emergency Department today. Your CT today was reassuring. There was no evidence of obstruction but there was a significant amount stool. Please take the medications as prescribed. Also please follow up with the your PCP regarding the elevated liver enzymes that were found on your lab work. Please return to the emergency department if you develop any significant sharp or worsening abdominal pain, or any other concerning signs or symptoms. I hope you feel better soon. Please follow up with your primary care provider within a week if your symptoms continue. If you do not have a primary care provider please contact the [facility] Resource line at [phone]. They will ask some questions about your medical history and help you get set up with a provider in the community. Prescriptions: New bisacodyl 10 mg suppository 10 mg KS DAILY PRN (Reason: constipation) Qty: 12 0RF magnesium citrate Solution 300 ml PO DAILY PRN (Reason: constipation) Qty: 296 0RF polyethylene glycol 3350 [Miralax] 17 gram/dose powder 17 g PO BID Qty: 510 0RF senna 8.6 mg capsule 8.6 mg PO BID PRN (Reason: constipation) Qty: 30 0RF No Action phentermine 15 mg capsule 15 mg PO DAILY Rx Instructions: must administer 2 hours after breakfast gabapentin 300 mg capsule 300 mg PO BID Contrave 8-90 mg tablet extended release 2 tab PO BID hydromorphone 2 mg Tablet 2 mg PO Q3H PRN (Reason: Pain, Severe (7-10)) Qty: 20 0RF Referrals: Ayan Bradshaw DO [Primary Care Provider, Family Practice] Stand Alone Forms: Patient Portal/API
[2025-04-06] MEDS: MINERAL OIL 1 EACH ENEMA PR (12:26)
--- NOTE | 2025-04-06 13:00 | DI.CT.S_ITS ---
PROCEDURE: CT ABDOMEN PELVIS W CON INDICATIONS: r/o SBO, Constipation + vomiting s/p lap hysterectomy TECHNIQUE: After the administration of intravenous contrast, axial sections acquired from the lung bases to the pubic symphysis. Coronal and sagittal reformats were performed. For radiation dose reduction, the following was used: automated exposure control, adjustment of mA and/or kV according to patient size. COMPARISON: [facility], CT, CT ABDOMEN PELVIS W CON, 08/01/2024, 11:57. FINDINGS: Image quality: Diagnostic. Lower Chest: No significant findings. ABDOMEN: Liver: No solid mass. Gallbladder: Removed. Biliary ducts: No biliary dilation. Pancreas: No ductal dilation. Spleen: Size is within normal limits. Adrenal Glands: No adrenal nodules. Kidneys and Ureters: No hydronephrosis. No solid mass. No complex renal cystic lesion which requires follow up. Stomach and Bowel: Normal colonic caliber, without significant wall thickening. Peritoneum: Scattered areas of free intraperitoneal air. No free fluid. Ventral Wall: No significant ventral hernia. Abdominal Nodes: No retroperitoneal or mesenteric adenopathy by size criteria. Vessels: Aorta and inferior vena cava are normal in size. PELVIS: Pelvic Organs: Uterus is not visualized. Bladder: No bladder wall thickening, accounting for underdistention. Pelvic Nodes: No enlarged lymph nodes. Miscellaneous: No inguinal hernias are seen. Bones: No aggressive osseous abnormality. Right L5 transverse process pseudoarthrosis with the sacrum IMPRESSION: Nonvisualization of the uterus consistent with history of hysterectomy. Several scattered foci of free air within the abdomen and pelvis consistent with recent surgery. No abscess or free fluid. Dictated by: Orquidea Najera M.D. on 04/06/2025 at 14:33 Approved by: Orquidea Najera M.D. on 04/06/2025 at 14:40
[2025-04-06] MEDS: SODIUM CHLORIDE 0.9% 1,000 ML 1000 ML IV (13:13)
[2025-04-06 13:19] LABS: Add Manual Diff / Slide Review NO; Hematocrit 39.9 % (36-46); Hemoglobin 13.5 g/dL (12.0-16.0); Lymphocytes Absolute Auto 1600 /uL (1100-4500); Mean Corpuscular HGB Conc 33.8 % (30-36); Mean Corpuscular Hemoglobin 30.2 PG (26-34); Mean Corpuscular Volume 89.4 fL (80-100); Platelet Count 253 X10^3/uL (150-400)
[2025-04-06 13:26] VITALS: BP 146/82; PULSE 72; RESP 16; O2SAT 98
[2025-04-06 13:35] LABS: Alanine Aminotransferase 98 IU/L (<35); Albumin 4.6 g/dL (3.5-5.0); Albumin Globulin Ratio 1.3 (1.0-2.8); Alkaline Phosphatase 91 U/L (38-126); Blood Urea Nitrogen 11 mg/dL (7-17); Calcium 9.5 mg/dL (8.4-10.2); Carbon Dioxide 26 mmol/L (22-32); Chloride 105 mmol/L (98-107); Estimated Glomerular Filt Rate > 60 mL/min (>60); Globulin 3.5 g/dL (1.7-4.1); Glucose 103 mg/dL (70-99); HEMOLYSIS < 15 (0-50); Potassium 4.3 mmol/L (3.4-5.1); Sodium 140 mmol/L (137-145); Total Protein 8.1 g/dL (6.3-8.2)
[2025-04-06 15:17] VITALS: BP 120/82; PULSE 72; RESP 18; O2SAT 100
== END 2025-04-06 15:19 | disposition home or self-care (01) ==
PROVIDERS: Emergency Provider Physician Assistant Medical; PCP Family Medicine
DX: K59.00 Constipation, unspecified (principal); R11.2 Nausea with vomiting, unspecified; Z90.710 Acquired absence of both cervix and uterus
CPT/HCPCS: 36415; 74177; 80053; 81003; 85025; 96360; 99284; Q9967